=== PATIENT | male | born 1945 | race Caucasian/White ===

== ENCOUNTER 2017-04-10 10:43 | Emergency (ER) | payer MEDICARE, OTHER ==
[~2017-04-10 10:43] MED LIST: Sodium Chloride 0.9% 1,000 ML BAG ONE
[2017-04-10] MEDS ORDERED: Ondansetron HCl/PF 4 MG/2 ML Vial ONE (11:00)
[2017-04-10] MEDS ORDERED: Promethazine HCl 25 MG/ML VIAL ONE (11:17)
[2017-04-10] MEDS ORDERED: Morphine 4 MG/ML VIAL ONE (11:19)
[2017-04-10 11:21] LABS: ALT (SGPT) 13 U/L (8-55); AST (SGOT) 10 U/L (5-34); Albumin 4.1 g/dL (3.4-4.8); Alkaline Phosphatase 81 U/L (40-150); Anion Gap 26 mmol/L (10-20); BUN (Urea Nitrogen) 47 mg/dL (8.4-25.7); Bilirubin, Total 0.5 mg/dL (0.2-1.2); Calc. Creatinine Clearance 0 mL/min (70-130); Carbon Dioxide 38 mmol/L (23-31); Estimated GFR-MDRD 31; Globulin 2.9 g/dL (2.4-3.5); Glucose 289 mg/dL (83-110); Lipase 10 U/L (8-78)
[2017-04-10 11:29] LABS: Band 38 % (5-11); Chloride 79 mmol/L (98-107); Hemoglobin 12.1 g/dL (14.0-18.0); Lymphocytes 2 % (21-51); MDiff Complete? YES; Mean Corpuscular HGB CONC 33.3 g/dL (32.0-36.0); Mean Corpuscular Hemoglobin 32.1 pg (27.0-31.0); Mean Corpuscular Volume 96.5 fl (80.0-94.0); Mean Platelet Volume 7.8 fL (7.4-10.4); Monocytes 6 % (0-10); Neutrophil 46 % (42-75); PLT Morphology Comment Appears Adequate; Platelet Count 228 thou/uL (130-400); Potassium 3.8 mmol/L (3.5-5.1); RBC Distribution Width 12.2 % (11.5-14.5); RBC Morphology Normal; Reactive Lymphocytes 8 % (0-10); Red Blood Cell (RBC) Count 3.79 mill/uL (4.70-6.10); Sodium 138 mmol/L (136-145); White Blood Cell (WBC) Count 5.2 thou/uL (4.8-10.8)
[2017-04-10 11:40] LABS: CKMB 0.7 ng/mL (0-6.6); Troponin I 0.013 ng/mL (< 0.028)
[2017-04-10 11:52] LABS: INR-International Normal Ratio 1.1; Prothrombin Time 13.9 SEC (12.0-14.7)
[2017-04-10 11:53] LABS: Calcium 13.3 mg/dL (7.8-10.44)
[2017-04-10 11:54] LABS: PTT 22.5 SEC (22.9-36.1)
--- NOTE | 2017-04-10 14:14 | CT ---
CT ABDOMEN AND PELVIS NONCONTRAST: Date: 04/10/17 INDICATION: Nausea, vomiting, and GI bleed. FINDINGS: There is abnormal dilatation of fluid-filled small bowel, with incomplete assessment of the bowel due to lack of IV or enteric contrast. There is an anastomotic suture line at the right mid abdomen. Sug gestion of decompressed unopacified bowel distal to the anastomosis which may therefore relate to karolina stomotic stricture. Ascites is present. No disseminated free air is seen. There is fluid-filled diste ntion of the stomach with an indwelling enteric catheter. There is calcification at the left renal hi lum, likely vascular. There is also punctate right renal calcification suggestive of nonobstructed ne phrolithiasis. The solid abdominal organs are limited in assessment without the presence of IV contra st. There is a moderately distended gallbladder with cholelithiasis. Surgical change at the ventral a bdominal wall with skin bernardino and underlying stranding present. There is diffuse vascular calcifica tion. Mild pericardial fluid present. Bibasilar atelectasis is seen, incompletely assessed. IMPRESSION: 1. Evidence of abnormal dilatation of small bowel as discussed above, limited in assessment by nonco ntrast technique. Findings could relate to an anastomotic stricture. Recommend surgical consultation. 2. Ascites. 3. Cholelithiasis and gallbladder distention. 4. Additional details are described above. POS: RAND
[2017-04-10] MEDS ORDERED: Pantoprazole 40 MG VIAL ONE (14:40)
[2017-04-10 18:03] LABS: ALT (SGPT) 10 U/L (8-55); AST (SGOT) 9 U/L (5-34); Albumin 3.4 g/dL (3.4-4.8); Alkaline Phosphatase 66 U/L (40-150); Anion Gap 23 mmol/L (10-20); BUN (Urea Nitrogen) 46 mg/dL (8.4-25.7); Bilirubin, Total 0.4 mg/dL (0.2-1.2); Calc. Creatinine Clearance 0 mL/min (70-130); Carbon Dioxide 33 mmol/L (23-31); Chloride 89 mmol/L (98-107); Estimated GFR-MDRD 36; Globulin 2.4 g/dL (2.4-3.5); Glucose 172 mg/dL (83-110); Potassium 3.8 mmol/L (3.5-5.1); Protein, Total 5.8 g/dL (5.8-8.1); Sodium 141 mmol/L (136-145)
[2017-04-10 18:09] LABS: Band 25 % (5-11); Eosinophils 1 % (0-10); Hemoglobin 10.6 g/dL (14.0-18.0); Lymphocytes 4 % (21-51); MDiff Complete? YES; Mean Corpuscular HGB CONC 33.4 g/dL (32.0-36.0); Mean Corpuscular Hemoglobin 32.2 pg (27.0-31.0); Mean Corpuscular Volume 96.4 fl (80.0-94.0); Mean Platelet Volume 8.3 fL (7.4-10.4); Monocytes 14 % (0-10); Neutrophil 44 % (42-75); Nucleated RBC 2 % (0); PLT Morphology Comment Appears Adequate; Platelet Count 206 thou/uL (130-400); Polychromasia SLIGHT = 2-3 cells (100X) (0-2/hpf); RBC Distribution Width 12.2 % (11.5-14.5); Reactive Lymphocytes 12 % (0-10); White Blood Cell (WBC) Count 5.6 thou/uL (4.8-10.8)
[2017-04-11 06:27] LABS: Calcium 12.2 mg/dL (7.8-10.44)
== END 2017-04-10 17:59 ==
LOC: MADERS 10:43
DX: K56.609 Unspecified intestinal obstruction, unspecified as to partial versus complete obstruction (principal); E83.52 Hypercalcemia; R74.9 Abnormal serum enzyme level, unspecified; E11.9 Type 2 diabetes mellitus without complications; E78.5 Hyperlipidemia, unspecified; I10 Essential (primary) hypertension; F17.210 Nicotine dependence, cigarettes, uncomplicated; Z79.84 Long term (current) use of oral hypoglycemic drugs; Z79.899 Other long term (current) drug therapy
CPT/HCPCS: 36415; 74176; 80053; 82274; 82553; 83690; 83735; 84484; 85025; 85379; 85610; 85730; 86850; 86900; 86901; 93005; 94760; 96361; 96365; 96366; 96375; 96376; C9113; J2270; J2405; J2550; J7050

== ENCOUNTER 2017-09-21 13:06 | Emergency (ER) | payer MEDICARE, OTHER ==
[2017-09-21 13:59] LABS: #Basophils 0.1 thou/uL (0.0-0.2); #Eosinphils 0.2 thou/uL (0.0-0.7); #Lymphocytes 1.8 thou/uL (1.20-3.40); #Monocytes 0.8 thou/uL (0.11-0.59); #Neutrophils 7.3 thou/uL (1.40-6.50); %Eosinophils 1.9 % (0.0-10.0); %Lymphocytes 17.5 % (21.0-51.0); %Monocytes 7.7 % (0.0-10.0); Hemoglobin 11.4 g/dL (14.0-18.0); Mean Corpuscular HGB CONC 30.7 g/dL (32.0-36.0); Mean Corpuscular Hemoglobin 28.3 pg (27.0-31.0); Mean Corpuscular Volume 92.2 fl (80.0-94.0); Mean Platelet Volume 7.7 fL (7.4-10.4); Platelet Count 190 thou/uL (130-400); RBC Distribution Width 16.2 % (11.5-14.5); Red Blood Cell (RBC) Count 4.04 mill/uL (4.70-6.10); White Blood Cell (WBC) Count 10.1 thou/uL (4.8-10.8)
[2017-09-21 14:17] LABS: ALT (SGPT) 11 U/L (8-55); AST (SGOT) 11 U/L (5-34); Albumin 4.1 g/dL (3.4-4.8); Alkaline Phosphatase 112 U/L (40-150); Anion Gap 16 mmol/L (10-20); BUN (Urea Nitrogen) 35 mg/dL (8.4-25.7); Bilirubin, Total 0.3 mg/dL (0.2-1.2); Calc. Creatinine Clearance 0 mL/min (70-130); Calcium 10.3 mg/dL (7.8-10.44); Carbon Dioxide 15 mmol/L (23-31); Chloride 108 mmol/L (98-107); Estimated GFR-MDRD 26; Glucose 165 mg/dL (83-110); Potassium 5.2 mmol/L (3.5-5.1); Protein, Total 7.1 g/dL (5.8-8.1); Sodium 134 mmol/L (136-145)
[2017-09-21 14:21] LABS: Bilirubin Negative (Negative); Blood, Urine Large (Negative); Clarity Hazy (Clear); Glucose, Urine (Dipstick) Negative (Negative); Leukocyte Small (Negative); Nitrite Negative (Negative); Protein, Urine (Dipstick) 100 mg/dL (Neg-Trace); Urobilinogen 0.2 mg/dL (0.2-1.0)
[2017-09-21 14:22] LABS: Bacteria/HPF 1+ HPF (None Seen); RBC/HPF GREATER THAN 50-TNTC HPF (0-3); Squamous Epithelial 0-3 HPF (0-3)
== END 2017-09-21 15:29 | disposition home or self-care (01) ==
LOC: MADERS 13:06
DX: E87.6 Hypokalemia (principal); N39.0 Urinary tract infection, site not specified; N28.9 Disorder of kidney and ureter, unspecified; I12.9 Hypertensive chronic kidney disease with stage 1 through stage 4 chronic kidney disease, or unspecified chronic kidney disease; E11.22 Type 2 diabetes mellitus with diabetic chronic kidney disease; E78.5 Hyperlipidemia, unspecified; F17.210 Nicotine dependence, cigarettes, uncomplicated; N18.3 Chronic kidney disease, stage 3 (moderate); D64.9 Anemia, unspecified; E55.9 Vitamin D deficiency, unspecified; I70.0 Atherosclerosis of aorta; K21.9 Gastro-esophageal reflux disease without esophagitis; G47.30 Sleep apnea, unspecified; N40.0 Benign prostatic hyperplasia without lower urinary tract symptoms; M85.80 Other specified disorders of bone density and structure, unspecified site; Z87.442 Personal history of urinary calculi
CPT/HCPCS: 36415; 80053; 81003; 81015; 83605; 85025; 87040; 87086; 93005; 94760

== ENCOUNTER 2018-07-06 11:57 | Emergency (ER) | payer MEDICARE, OTHER ==
[2018-07-06 13:57] LABS: ALT (SGPT) 15 U/L (8-55); AST (SGOT) 13 U/L (5-34); Albumin 3.6 g/dL (3.4-4.8); Alkaline Phosphatase 172 U/L (40-150); Anion Gap 11 mmol/L (10-20); BUN (Urea Nitrogen) 28 mg/dL (8.4-25.7); Bilirubin, Total 0.2 mg/dL (0.2-1.2); Calc. Creatinine Clearance 0 mL/min (70-130); Calcium 9.5 mg/dL (7.8-10.44); Carbon Dioxide 24 mmol/L (23-31); Chloride 108 mmol/L (98-107); Estimated GFR-MDRD 35; Glucose 142 mg/dL (83-110); Lipase 35 U/L (8-78); Potassium 3.9 mmol/L (3.5-5.1); Protein, Total 6.6 g/dL (5.8-8.1); Sodium 139 mmol/L (136-145)
[2018-07-06] MEDS ORDERED: Piperacillin/Tazobactam 4.5 GM VIAL ONE (14:48)
[2018-07-06] MEDS ORDERED: Morphine 10 MG/ML VIAL ONE (14:48)
[2018-07-06] MEDS ORDERED: Sodium Chloride 0.9% 100 ML ONE (14:49)
--- NOTE | 2018-07-06 15:25 | CT ---
CT ABDOMEN AND PELVIS WITH CONTRAST: HISTORY: Discharge from the surgical site. COMPARISON: CT abdomen and pelvis 04/10/2017. FINDINGS: The lung bases are clear. No pericardial effusion. There is cholelithiasis without evidence of cholecystitis. There is a fluid collection just beneath the right rectus sheath muscle contained by the transversalis fascia above the umbilicus measuring 5. 3 x 1.8 x 5.5 cm (transverse x AP x CC). This does have a sinus tract at the skin surface along its caudad margin with also a sinus tract to the caudad-most skin staple. This is concerning for infecte d collection, although is thin. There is a possible second collection deep to the rectus sheath whic h is very thin measuring 9 mm in transverse x 5 mm AP dimension x craniocaudad length of 5 cm with a sinus tract to the skin with peripheral enhancement. There is an anastomotic suture line adjacent to this collection. There is cholelithiasis without cholecystitis. The liver and spleen are unremarkable with calcified splenic granulomas. The adrenal gland is unremarkable. No retroperitoneal adenopathy. IMPRESSION: 2 separate collections deep to the right and left rectus abdominus muscles and the transversalis fasc ia as described with the sinus tracts both to the right lower quadrant incision site as well as of th e midline central incision site likely decompressing seroma/abscesses. There is no definite connection to the underlying small bowel. POS: RAND
== END 2018-07-06 17:47 | disposition short-term general hospital (02) ==
LOC: MADERS 11:57
DX: L02.211 Cutaneous abscess of abdominal wall (principal); I10 Essential (primary) hypertension; E11.9 Type 2 diabetes mellitus without complications; E78.5 Hyperlipidemia, unspecified; N18.3 Chronic kidney disease, stage 3 (moderate); D64.9 Anemia, unspecified; G47.00 Insomnia, unspecified; K21.9 Gastro-esophageal reflux disease without esophagitis; N44.00 Torsion of testis, unspecified; G47.30 Sleep apnea, unspecified; Z87.891 Personal history of nicotine dependence; Z79.899 Other long term (current) drug therapy; Z79.82 Long term (current) use of aspirin
CPT/HCPCS: 74177; 80053; 83605; 83690; 96365; 96375; J2270; J2543; J7050

== ENCOUNTER 2022-11-03 11:36 | Emergency (ER) | payer MEDICARE, OTHER ==
[2022-11-03] MEDS ORDERED: Ipratropium/Albuterol 3 ML NEB ONE (12:16)
[2022-11-03 12:31] LABS: Hemoglobin 13.6 g/dL (14.0-18.0); Mean Corpuscular HGB CONC 31.3 g/dL (32.0-36.0); Mean Corpuscular Volume 98.9 fl (78.0-98.0); Mean Platelet Volume 11.5 fL (7.4-10.4); Platelet Count 99 10x3/uL (130-400); RBC Distribution Width 14.1 % (11.5-14.5); Red Blood Cell (RBC) Count 4.38 mill/uL (4.70-6.10); White Blood Cell (WBC) Count 5.9 10x3/uL (4.8-10.8)
[2022-11-03 12:34] LABS: Bilirubin Negative (Negative); Blood, Urine Trace (Negative); Clarity Clear (Clear); Glucose, Urine (Dipstick) 100 mg/dL (Negative); Ketone, Urine Trace mg/dL (Negative); Leukocyte Negative (Negative); Nitrite Negative (Negative); Protein, Urine (Dipstick) > or equal to 300 mg/dL (Neg-Trace); Specific Gravity, Urine 1.025 (1.005-1.030); Urobilinogen 0.2 mg/dL (Less than 2); pH, Urine 5.5 (5.0-9.0)
[2022-11-03 12:42] LABS: ALT (SGPT) 32 U/L (8-55); AST (SGOT) 22 U/L (5-34); Albumin 3.6 g/dL (3.4-4.8); Alkaline Phosphatase 88 U/L (40-110); Anion Gap 12 mmol/L (10-20); BUN (Urea Nitrogen) 37 mg/dL (8.4-25.7); Bilirubin, Total 0.4 mg/dL (0.2-1.2); Calc. Creatinine Clearance 0 mL/min (70-130); Calcium 9.4 mg/dL (7.8-10.44); Carbon Dioxide 19 mmol/L (23-31); Chloride 116 mmol/L (98-107); Estimated GFR 19; Globulin 3.1 g/dL (2.4-3.5); Glucose 154 mg/dL (83-110); Potassium 4.7 mmol/L (3.5-5.1); Protein, Total 6.7 g/dL (5.8-8.1); Sodium 142 mmol/L (136-145)
[2022-11-03 12:44] LABS: Anisocytosis SLIGHT = 6-15 cells (100X) (0-5/hpf); Band 9 % (5-11); Eosinophils 1 % (0-10); Lymphocytes 10 % (21-51); MDiff Complete? YES; Manual Diff?? YES; Monocytes 12 % (0-10); Neutrophil 68 % (42-75); Platelet Adequacy Comment Appears Decreased
[2022-11-03 12:57] LABS: RBC/HPF 0-3 HPF (0-3)
[2022-11-03 12:58] LABS: Bacteria/HPF Rare-Few HPF (None Seen); CAUTI Indications for Culture Dysuria,urgency,freq; WBC/HPF 0-3 HPF (0-3)
[2022-11-03 13:04] LABS: Urine Culture Reflex No No
[2022-11-03 13:28] LABS: CKMB 2.1 ng/mL (0-6.6)
[2022-11-03] MEDS ORDERED: Aspirin 325 MG TAB ONE (13:51)
[2022-11-03] MEDS ORDERED: Nitroglycerin 2% Ointment 1 INCH/1 GM Packet ONE (13:51)
[2022-11-03] MEDS ORDERED: Furosemide 40 MG/4 ML VIAL ONE (13:51)
[2022-11-03] MEDS ORDERED: Metoprolol Tartrate 50 MG TAB ONE (14:08)
[2022-11-03] MEDS ORDERED: Labetalol HCl 100 MG/20 ML VIAL ONE ×2 (16:55→18:23)
[2022-11-03 17:30] LABS: Base Excess-Venous -7.8 mmol/L (-2.0 to 3.0); Bicarbonate (HCO3v) 19.2 mmol/L (22.0-28.0); CO2 Tension (PvCO2) 43.5 mmHg (42.0-51.0); Calcium, Ionized 1.28 mmol/L (1.15-1.33); Chloride 118 mmol/L (98-107); Hemoglobin - Calc 15.9 g/dL (14.0-18.0); Potassium 4.8 mmol/L (3.5-5.1); Sodium 143 mmol/L (138-145); T. Carbon Dioxide 20.5 mmol/L (22.0-28.0); vO2 Saturation-calc 95.5 % (60.0-85.0)
[2022-11-03] MEDS ORDERED: hydrALAZINE 10 MG TAB ONE (20:42)
[2022-11-03] MEDS ORDERED: Losartan 25 MG TAB ONE (20:42)
== END 2022-11-03 21:31 | disposition short-term general hospital (02) ==
LOC: MADERS 11:36
DX: I13.0 Hypertensive heart and chronic kidney disease with heart failure and stage 1 through stage 4 chronic kidney disease, or unspecified chronic kidney disease (principal); E11.22 Type 2 diabetes mellitus with diabetic chronic kidney disease; N18.4 Chronic kidney disease, stage 4 (severe); I50.41 Acute combined systolic (congestive) and diastolic (congestive) heart failure; D64.9 Anemia, unspecified; G47.00 Insomnia, unspecified; E55.9 Vitamin D deficiency, unspecified; Z87.891 Personal history of nicotine dependence; Z79.899 Other long term (current) drug therapy; Z79.4 Long term (current) use of insulin
CPT/HCPCS: 71045; 80053; 81001; 82330; 82550; 82553; 82803; 83605; 83880; 84484; 85025; 85379; 93005; 94640; 94760; 96372; 96374; 96375; 96376; J1940; J7620